=== PATIENT | male | born 1975 | race American Indian/Alaskan Native ===

== ENCOUNTER 2019-03-25 09:43 | Emergency (ER) | payer SELFPAY ==
[2019-03-25 09:52] VITALS: BP 142/101
--- NOTE | 2019-03-25 10:08 | Emergency Department Report ---
Chief Complaint: Back Pain/Injury Stated Complaint: BACK AND HIP PAIN Time Seen by Provider: 03/25/19 09:59 - HPI History of Present Illness: Patient is a 43-year-old male who states he injured his back several months ago and is continued to have some discomfort. Patient has pain in the bilateral upper back as well as his bilateral lumbar spine. Patient states his electric type pain. Says is worse when he is sitting. Patient does sit for prolonged period of time. Patient has no bowel or bladder dysfunction. - ROS Review of Systems: All other systems are reviewed and are negative - Exam Vital Signs: Vital Signs 03/25/19 09:49 Temperature 97.5 F L Pulse Rate 120 H Respiratory 16 Rate Blood Pressure 142/101 O2 Sat by Pulse 100 Oximetry Physical Exam: Patient has full range of motion to his back. There is no erythema present. Patient has no midline tenderness. MSE screening note: Focused history and physical exam performed. Due to findings the following was ordered: ED Medical Decision Making - Medical Decision Making Patient has a history of chronic back pain. Patient does not have a medical emergency at this time and suggested that the patient see urgent care orthopedic surgery. Patient can continue Motrin for his back pain and ice. ED Disposition for MSE Clinical Impression: Chronic back pain Qualifiers: Back pain location: back pain in unspecified location Back pain laterality: bilateral Qualified Code(s): M54.9 - Dorsalgia, unspecified; G89.29 - Other chronic pain Disposition: MED SCREENING EXAM-LEFT Condition: Stable Instructions: Chronic Back Pain (ED) Additional Instructions: Please take up to 800 mg of ibuprofen every 6 hours for pain. Also using ice therapy piggyback should help improve her discomfort. Back stretching exercises may be helpful as well. Referrals: PEDRITO SALOMON MD [Referring] - 3-5 Days OSCAR LEAVITT MD [Staff Physician] - 3-5 Days Time of Disposition: :07
== END 2019-03-25 10:14 | disposition left against medical advice (07) ==
LOC: ED 09:43
DX: G89.29 Other chronic pain (principal); M54.6 Pain in thoracic spine
CPT/HCPCS: 99282